=== PATIENT | male | born 1955 | race Caucasian/White ===

== ENCOUNTER → 2017-02-20 | Outpatient (CLI) | payer BC, MEDICARE ==
[~2017-02-20] MED LIST: ASPIR-LOW81 MG PO; CIPRO 500MG TA500 MG PO; DULERA1 ARO IH; FLAGYL500 MG PO; LOPRESSOR 225 MG/TAB PO; NORCO 325 MG-51 TAB PO; PROAIR HFA0.09 MG/AC IH; ZOCOR40 MG PO; ZOFRAN 4MG T4 MG/TAB PO
== END ==
LOC: COL.LAB 10:02
DX: S22.31XA Fracture of one rib, right side, initial encounter for closed fracture (principal)

== ENCOUNTER 2021-02-01 11:12 | Day surgery (SDC) | payer BC, MEDICARE ==
[~2021-02-01] VITALS: Ht 185.5 cm; Wt 111.9 kg
[2021-02-01] VITALS (12 sets, daily range): BP systolic 99–134; BP diastolic 48–79; PULSE 73–82; TEMP 99.1
[2021-02-01 10:48] LABS: HEMATOCRIT 46.9 % (42.0-52.0); HEMOGLOBIN 15.6 g/dl (13.5-18.0); MEAN CELL VOLUME 96 fl (80.0-100.0); MEAN CORPUSCULAR HEMOGLOBIN 32 pg (27.0-31.0); MEAN CORPUSCULAR HGB CONC 33 g/dl (33.0-37.0); MEAN PLATELET VOLUME 8.6 fl (7.4-10.4); PLATELET COUNT 260 K/mm3 (130-400); RED BLOOD COUNT 4.91 M/mm3 (4.20-5.60); REDCELL DISTRIBUTION WIDTH-CV 13.2 % (11.5-14.5)
[2021-02-01 10:55] LABS: PROTHROMBIN TIME 11.2 SECONDS (9.7-12.8)
[2021-02-01 10:58] LABS: PARTIAL THROMBOPLASTIN TIME 28.4 SECONDS (26.0-37.0)
[2021-02-01 11:07] LABS: CALCIUM 8.9 mg/dL (8.4-10.2); CREATININE, serum 1.13 mg/dL (0.72-1.25); POTASSIUM 4.4 mmol/L (3.5-4.5)
[2021-02-01] MEDS ORDERED: ASPIRIN E.C. 8181 MG PO (11:34)
[2021-02-01] MEDS ORDERED: ANORO IH (11:34)
[2021-02-01] MEDS ORDERED: NORVASC 5MG5 MG/TAB PO (11:34)
[2021-02-01] MEDS ORDERED: CELEBREX 200MG200 MG PO (11:35)
[2021-02-01] MEDS ORDERED: HCTZ12.5TAB PO (11:35)
[2021-02-01] MEDS ORDERED: JANUVIA 100MG100 MG PO ×2 (11:36→11:40)
[2021-02-01] MEDS ORDERED: JARDIANCE25 PO (11:36)
[2021-02-01] MEDS ORDERED: PRINIVIL40 MG PO (11:37)
[2021-02-01] MEDS ORDERED: SYNTHROID 0.10.15 MG PO (11:37)
[2021-02-01] MEDS ORDERED: PRAVACHOL 40MG40 MG PO (11:38)
[2021-02-01] MEDS ORDERED: CIALIS5 MG PO (11:39)
--- NOTE | 2021-02-01 11:44 | NUR ---
SEE MERGE DOCUMENTATION FOR MEDICATION ADMINISTRATION TIMES AND INTRA/POST PROCEDURE SEDATION ASSESSMENTS.
[2021-02-01] MEDS ORDERED: LIPITOR 40MG TA40 MG PO (12:42)
--- NOTE | 2021-02-01 15:15 | NUR ---
Air was removed from TR band in 2ml increments with no bleeding or complication. Just prior to start of air release, pt had c/o increased pain from rt thumb extending to AC. No hematoma noted, forearm remained soft to palpation. Warm blanket was applied, tylenol order obtained, and SALLY Alcazar with labor mediator was called to reassess site. Interventions improved discomfort, and pain resolved after 4 ml of air was released from TR band. 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 Pt is steady on feet to restroom. He has tolerated PO without issue. INT DC'd with catheter intact. Rt radial puncture site was dressed with folded 2x2 and bandaid. DC instructions were reviewed with pt and , both expressed understanding. Pt was assisted out by wheelchair to 's car.
== END 2021-02-01 15:15 | disposition home or self-care (01) ==
LOC: COL.CAR 11:12
PROVIDERS: Internal Medicine Cardiovascular Disease
DX: R06.00 Dyspnea, unspecified (principal); R07.89 Other chest pain; I10 Essential (primary) hypertension; J44.9 Chronic obstructive pulmonary disease, unspecified; I44.7 Left bundle-branch block, unspecified; I51.7 Cardiomegaly; G47.33 Obstructive sleep apnea (adult) (pediatric); E11.9 Type 2 diabetes mellitus without complications; E03.9 Hypothyroidism, unspecified; E78.49 Other hyperlipidemia; E66.9 Obesity, unspecified; N52.9 Male erectile dysfunction, unspecified; Z68.32 Body mass index [BMI] 32.0-32.9, adult; Z79.890 Hormone replacement therapy; Z79.84 Long term (current) use of oral hypoglycemic drugs; Z87.891 Personal history of nicotine dependence; Z79.82 Long term (current) use of aspirin
CPT/HCPCS: C1769; C1887; J1644; J2250; J3010; Q9967

== ENCOUNTER → 2021-02-19 | Outpatient (CLI) | payer BC, MEDICARE ==
[~2021-02-19] MED LIST changes: +ANORO IH; +ASPIRIN E.C. 8181 MG PO; +CELEBREX 200MG200 MG PO; +CIALIS5 MG PO; +HCTZ12.5TAB PO; +JANUVIA 100MG100 MG PO; +JARDIANCE25 PO; +LIPITOR 40MG TA40 MG PO; +NORVASC 5MG5 MG/TAB PO; +PRAVACHOL 40MG40 MG PO; +PRINIVIL40 MG PO; +SYNTHROID 0.10.15 MG PO
== END ==
LOC: COL.RAD 12:50
DX: Z12.2 Encounter for screening for malignant neoplasm of respiratory organs (principal); Z87.891 Personal history of nicotine dependence